=== PATIENT | male | born 1980 | race Caucasian/White ===

== ENCOUNTER 2019-03-17 08:34 | Emergency (ER) | payer BC ==
[2019-03-17 08:59] VITALS: BP 130/90
--- NOTE | 2019-03-17 09:31 | UC ---
Abdominal Pain Male HPI - HPI Summary HPI Summary: 38 yo male with onset of abd pain and diarrhea (profuse and watery) that started last PM weak/dizzy and chills just finished antibiotic 2 days ago for c.diff (? flagyl) was feeling back to normal Now feels much worse than when he was initially diagnosed - History of Current Complaint Chief Complaint: UCGU Stated Complaint: DIARRHEA,ELEVATED HEART RATE;PREV DX-C DIFF Time Seen by Provider: 03/17/19 09:10 Hx Obtained From: Patient Onset/Duration: Sudden Onset, Lasting Hours Timing: Constant Severity Initially: Mild Severity Currently: Moderate Pain Intensity: 0 Pain Scale Used: 0-10 Numeric Location: Epigastric Radiates: No Character: Cramping Aggravating Factor(s): Nothing Associated Signs And Symptoms: Positive: Diaphoresis, Back Pain, Diarrhea Similar Episode/Dx As:: C. Diff Male Torso: 1 - pain here - Allergies/Home Medications Allergies/Adverse Reactions: Allergies Allergy/AdvReac Type Severity Reaction Status Date / Time No Known Allergies Allergy Verified 03/17/19 08:59 Home Medications: Home Medications NK [No Home Medications Reported] 03/17/19 [History Confirmed 03/17/19] PMH/Surg Hx/FS Hx/Imm Hx Previously Healthy: Yes - Surgical History Surgical History: None - Family History Known Family History: Positive: Hypertension, Non-Contributory Negative: Cardiac Disease, Diabetes - Social History Alcohol Use: Occasionally Substance Use Type: None Smoking Status (MU): Never Smoked Tobacco Review of Systems All Other Systems Reviewed And Are Negative: Yes Constitutional: Positive: Chills, Fatigue Skin: Positive: Negative Eyes: Positive: Negative ENT: Positive: Negative Respiratory: Positive: Negative Cardiovascular: Positive: Negative Gastrointestinal: Positive: Abdominal Pain, Diarrhea Genitourinary: Positive: Negative Motor: Positive: Negative Neurovascular: Positive: Negative Musculoskeletal: Positive: Negative Neurological: Positive: Negative Psychological: Positive: Negative Physical Exam Triage Information Reviewed: Yes Appearance: No Pain Distress, Well-Nourished, Ill-Appearing Vital Signs: Initial Vital Signs Temp 98.8 F 03/17/19 08:49 Pulse 110 03/17/19 08:49 Resp 16 03/17/19 08:49 BP 130/90 03/17/19 08:49 Pulse Ox 97 03/17/19 08:49 Vital Signs Reviewed: Yes Eyes: Positive: Conjunctiva Clear ENT: Positive: Hearing grossly normal. Negative: Nasal congestion, Nasal drainage, Trismus, Hoarse voice Neck: Positive: Supple, Nontender, No Lymphadenopathy Respiratory: Positive: Lungs clear, Normal breath sounds, No respiratory distress Cardiovascular: Positive: RRR, No Murmur, Tachycardia Abdomen Description: Negative: Nontender - diffuse mild tenderness, CVA Tenderness (R), CVA Tenderness (L) Bowel Sounds: Positive: Present Musculoskeletal: Positive: ROM Intact, No Edema Neurological: Positive: Alert Psychological Exam: Normal Skin Exam: Normal Abd Pain Male Course/Dx - Course Course Of Treatment: suspect recurrence of c. diff d/w Dawn Waite NO to [facility] via pov - Differential Dx/Clinical Impression Provider Diagnosis: Acute diarrhea Discharge ED - Sign-Out/Discharge Documenting (check all that apply): Patient Departure All imaging exams completed and their final reports reviewed: No Studies - Discharge Plan Condition: Fair Disposition: HOME-RECOMMEND TO ED - Billing Disposition and Condition Condition: FAIR Disposition: Home-Recommend to ED
== END 2019-03-17 09:46 | disposition home health service (06) ==
LOC: UCCORT 08:34
DX: R19.7 Diarrhea, unspecified (principal); R10.9 Unspecified abdominal pain; R53.83 Other fatigue; R68.83 Chills (without fever); R61 Generalized hyperhidrosis; M54.9 Dorsalgia, unspecified
CPT/HCPCS: 99202; G0463